=== PATIENT | female | born 1995 | race Caucasian/White ===

== ENCOUNTER 2017-12-02 22:25 | Emergency (ER) | payer MEDICAID, OTHER ==
[2017-12-02 22:25] VITALS: BMI 21.9
[2017-12-02 22:33] VITALS: TEMP 97.8
[2017-12-02] MEDS ORDERED: Sodium Chloride 0.9% 1,000 ML IV ONE (22:44)
[2017-12-02] MEDS ORDERED: Sodium Chloride 0.9% 1,000 ML ONE (22:53)
[2017-12-02 23:07] LABS: BASO % 0.2 % (0.0-2.0); EOS # 0.3 K/uL (0.0-0.7); EOS % 2.5 % (0.0-4.0); HEMOGLOBIN 10.2 g/dL (11.0-16.0); LYMPH # 1.9 K/uL (1.0-4.3); LYMPH % 16.8 % (20.0-40.0); MEAN CELL VOLUME 76.6 fL (81.0-99.0); MEAN CORPUSCULAR HEMOGLOBIN 25.8 pg (27.0-31.0); MEAN CORPUSCULAR HGB CONC 33.6 g/dL (33.0-37.0); MEAN PLATELET VOLUME 8.8 fL (7.2-11.7); MONO # 0.8 K/uL (0.0-0.8); MONO % 7.4 % (0.0-10.0); NEUT # 8.2 K/uL (1.8-7.0); NEUT % 73.1 % (50.0-75.0); RBC 3.97 Mil/uL (3.80-5.20); RED CELL DISTRIBUTION WIDTH 14.4 % (11.5-14.5); WHITE BLOOD COUNT 11.2 K/uL (4.8-10.8)
[2017-12-02 23:12] LABS: HCG,QUALITATIVE URINE POSITIVE (NEGATIVE)
[2017-12-02 23:20] LABS: SQUAMOUS EPITHIAL 12 /hpf (0-5); URINE BACTERIA RARE (<OCC); URINE BILIRUBIN NEGATIVE (NEGATIVE); URINE BLOOD NEGATIVE (NEGATIVE); URINE CLARITY Hazy (Clear); URINE COLOR Yellow (YELLOW); URINE GLUCOSE (UA) NORMAL (Normal); URINE LEUKOCYTE ESTERASE 3+ Leu/uL (Negative); URINE PROTEIN NEGATIVE (NEGATIVE)
[2017-12-02 23:21] LABS: ALB/GLOB RATIO 0.9 (1.0-2.1); ALBUMIN 3.4 g/dL (3.5-5.0); ALT/SGPT 15 U/L (9-52); AST/SGOT 21 U/L (14-36); BLOOD UREA NITROGEN 8 mg/dL (7-17); CALCIUM 8.6 mg/dl (8.6-10.4); GFR AFRICAN-AMERICAN > 60; GFR NON-AFRICAN AMERICAN > 60; LIPASE 61 U/L (23-300)
--- NOTE | 2017-12-02 23:39 | C.PDOC ---
History Of Present Illness 22 year old female presents to the ED complaining of nausea with occasional vomiting for the past 3 days. No fevers, chills, abdominal pain, diarrhea, or vaginal bleeding. Patient admits she recently had unprotected sex, does not know if she is . Time Seen by Provider: 12/02/17 22:37 Chief Complaint (Nursing): Abdominal Pain History Per: Patient History/Exam Limitations: no limitations Onset/Duration Of Symptoms: Days Current Symptoms Are (Timing): Still Present Abnormal Vaginal Bleeding: No : 2 Para: 1 Past Medical History Reviewed: Historical Data, Nursing Documentation, Vital Signs Vital Signs: Last Vital Signs Temp 97.8 F 12/02/17 22:29 Pulse 118 H 12/02/17 22:29 Resp 20 12/02/17 22:29 BP 113/77 12/02/17 22:29 Pulse Ox 98 12/02/17 23:57 - Medical History PMH: Back Problems (slipped disc), Hyperthyroidism Surgical History: Family History: States: No Known Family Hx - Social History Hx Tobacco Use: No Hx Alcohol Use: No Hx Substance Use: No - Immunization History Hx Tetanus Toxoid Vaccination: No Hx Influenza Vaccination: No Hx Pneumococcal Vaccination: No Review Of Systems Except As Marked, All Systems Reviewed And Found Negative. Constitutional: Negative for: Fever, Chills Gastrointestinal: Positive for: Nausea, Vomiting. Negative for: Abdominal Pain , Diarrhea Genitourinary: Negative for: Dysuria, Vaginal Discharge, Vaginal Bleeding Physical Exam - Physical Exam Appears: Non-toxic, No Acute Distress Skin: Normal Color, Warm, Dry Head: Atraumatic, Normacephalic Eye(s): bilateral: Normal Inspection, PERRL, EOMI Nose: Normal Oral Mucosa: Moist Neck: Normal ROM, Supple Chest: Symmetrical Cardiovascular: Rhythm Regular Respiratory: Normal Breath Sounds, No Accessory Muscle Use Gastrointestinal/Abdominal: Soft, Tenderness (right adnexal tenderness), No Guarding, No Rebound Back: No CVA Tenderness, No Vertebral Tenderness Extremity: Bilateral: Atraumatic, Normal Color And Temperature, Normal ROM Neurological/Psych: Oriented x3, Normal Speech ED Course And Treatment - Laboratory Results Result Diagrams: 12/02/17 23:03 12/02/17 23:03 Lab Interpretation: Normal (quant HCG 19,040 H) Urine POC: Positive O2 Sat by Pulse Oximetry: 98 (RA) Pulse Ox Interpretation: Normal Progress Note: IVF, zofran, pepcid Reevaluation Time: 00:22 Reassessment Condition: Improved Medical Decision Making Medical Decision Making: Time: 22:44 Initial Plan: * Labs * X-ray obstructive series * NSS IV fluids * Toradol 30 mg IVP * Pepcid 20 mg IVP * Zofran 4 mg IVP * Urinalysis * HCG, qualitative urine 23:35 Labs reviewed: test positive. Cancelled order for Toradol. Recommend ultrasound, patient accepts. Added orders for blood type/screen and quantitative HCG Disposition - Disposition Disposition Time: 01:00 Condition: GOOD Forms: [facility] (Lao) - Clinical Impression Clinical Impression: Abdominal pain affecting , UTI in - Scribe Statement The provider has reviewed the documentation as recorded by the Scribe (Mirela Vega) Provider Attestation: All medical record entries made by the Scribe were at my direction and personally dictated by me. I have reviewed the chart and agree that the record accurately reflects my personal performance of the history, physical exam, medical decision making, and the department course for this patient. I have also personally directed, reviewed, and agree with the discharge instructions and disposition. Physician Patient Turnover Patient Signed Over To: Slade Lopez Handoff Comments: pending US. dx mild UTI in , discharge with Macrobid PO
[2017-12-03 01:35] VITALS: BP 111/68; PULSE 71; RESP 18; O2SAT 100
--- NOTE | 2017-12-03 13:14 | US ---
PROCEDURE: Obstetrical ultrasound examination HISTORY: early preg, pelvic pain, ? ectopic COMPARISON: Not available TECHNIQUE: Transabdominal FINDINGS: The examination demonstrates a single live intrauterine gestation in breech presentation. The heart rate is 156 beats per minute. A grossly normal quantity of amniotic fluid is visualized. Normal posterior placenta is identified. There is no evidence of placenta previa. The cervix is slightly short but closed. It measures 2.7 cm in length. biometry yields a gestational age of 18 weeks 6 days. The SON by ultrasound is 04/30/2018. Limited review of anatomy demonstrates fluid distending the stomach and urinary bladder. A 4 chamber heart is visualized. Two normal kidneys are visualized. A three-vessel umbilical cord is identified. The anterior abdominal wall is intact. There is no gross abnormality of the spine IMPRESSION: Single live intrauterine gestation of approximately 18 weeks 6 days gestational age. Fetus in breech presentation. Posterior placenta. No previa. heart rate 156. No gross anatomic abnormality identified. Slightly shortened cervix measuring 2.7 cm. Preliminary interpretation of this examination was reported by [employer] at 1:32 a.m. on 12/03/2017. There is concurrence of this report with the preliminary interpretation.
== END 2017-12-03 02:12 | disposition home or self-care (01) ==
LOC: C.ER 22:25
DX: O23.42 Unspecified infection of urinary tract in pregnancy, second trimester (principal); R10.9 Unspecified abdominal pain; Z3A.18 18 weeks gestation of pregnancy
CPT/HCPCS: 76815; 80053; 81001; 83690; 84702; 84703; 85025; 86850; 86900; 87086; 96374; 96375; 99284; J2405; J7040